=== PATIENT | female | born 1995 | race Caucasian/White ===

== ENCOUNTER → 2017-09-24 | Outpatient (CLI) | payer OTHER | END | disposition home or self-care (01) | LOC: ECHO 08:14 | DX: R00.2 Palpitations (principal) | CPT/HCPCS: 93225; 93306 ==

== ENCOUNTER → 2018-04-10 | Outpatient (CLI) | payer OTHER ==
[2015-07-24 11:00] VITALS: BP 110/61
[~2018-04-10] MED LIST: CETI10TA22 PO; ERGO400T PO; HYDR-2765 PO; MULT1TAB87 PO
--- NOTE | 2018-04-10 08:55 | RAD ---
Complete abdominal ultrasound 04/10/2018 7:56 AM Clinical History: Right upper quadrant pain, gastritis Technique: Ultrasound examination of the abdomen was performed, and multiple static images were submitted for review. Comparison: None available Findings: The visualized portions of the pancreas are within normal limits. The visualized aorta and IVC are unremarkable. The gallbladder is normal in appearance without wall thickening, stones, or sludge. No pericholecystic fluid is seen. Sonographic Bermeo's sign is negative. The common bile duct is normal in diameter. The liver is normal in size. The liver is normal in echotexture. No intrahepatic biliary ductal dilatation is seen. No focal hepatic lesions are identified. Spleen is top normal in size measuring between 12 and 13 cm longitudinally. The bilateral kidneys are normal in appearance without evidence of obstructive uropathy, nephrolithiasis, or focal renal lesion. Right kidney measures 11.2 cm in length. Left kidney measures 11.7 cm in length. Impression: 1. Borderline slightly 2. Otherwise unremarkable abdominal ultrasound Electronically signed by: Kenney Castañeda MD (04/10/2018 8:50 AM) [id number]
== END | disposition home or self-care (01) ==
LOC: US 07:46
PROVIDERS: ATTEND Family Medicine
DX: K29.50 Unspecified chronic gastritis without bleeding (principal)
CPT/HCPCS: 76700